=== PATIENT | male | born 1985 | race Two or more races ===

== ENCOUNTER → 2018-12-14 | Outpatient (CLI) | payer OTHER ==
[~2018-12-14] MED LIST: ACE500 PO; AUG875 PO; CLOT15CR62 TP; DOC100 PO; IBU800 PO; IBUP-1618 PO; LOR5/325 PO; MULT1CAP41 PO; PER PO
--- NOTE | 2018-12-14 13:35 | RADIOLOGY IMAGING REPORT ---
[place] [facility] [place] NAME: Amilcar Rush : 1985 MR: [id number] V: [id number] EXAM DATE: ORDERING PHYSICIAN: HARMEET MOJICA TECHNOLOGIST: Location: [facility] - [place] Patient: Amilcar Rush : 1985 Visit/Account:[id number] Date of Sevice: 12/14/2018 TESTICULAR HISTORY: Left testicular atrophy COMPARISON: November 26, 2008 FINDINGS: Testes: The right testicle measures 4.2 x 2.4 by by 3 cm. . The left testicle measures 2.3 x 1 x 1. 5 cm and has decrease in size and appears heterogeneous when compared to the prior study. Blood flow appears unremarkable in the right testicle. There is diminished vascularity the left testicle relat silvia to the right. 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 The body the epididymis on the left however appears prominent Blood flow is unremark able in each epididymis by color Doppler ultrasound. Hydrocele: There is a small to moderate hydrocele on the right. Several echogenic shadowing foci are seen in the right-sided the scrotal sac measuring up to 8 mm in diameter which may represent scrotal pearls Varicocele: None. IMPRESSION: Left testicle appears small and heterogeneous when compared the prior study from November 26, 2008. Ther e also appears to be diminished flow in the left testicle relative to the right Left-sided microlithi asis also noted. The body the left epididymis appears prominent. Small to moderate right hydrocele. Calcifications within the right-sided the scrotal sac which may r epresent scrotal pearls Report Dictated By: Orquidea Fishman MD at 12/14/2018 1:13 PM Report E-Signed By: Orquidea Fishman MD at 12/14/2018 1:27 PM WSN:[id number]
== END ==
LOC: US 01:41
PROVIDERS: ATTEND Urology
DX: N43.3 Hydrocele, unspecified (principal)
CPT/HCPCS: 76870